=== PATIENT | male | born 1970 | race Caucasian/White ===

== ENCOUNTER 2021-04-08 09:09 | Day surgery (SDC) | payer OTHER ==
[2021-04-08] MEDS ORDERED: Lactated Ringers 1,000 ML IV SCH (09:30)
[2021-04-08] MEDS ORDERED: Lactated Ringers 1,000 ML IV ONE (09:49)
--- NOTE | 2021-04-08 11:26 | HP ---
PROCEDURE DATE: 04/08/2021 HISTORY OF PRESENT ILLNESS: The patient is a 50 y/o with no prior colonoscopy in the past. No blood in the stool. No change in bowel movements. No pain. In need of screening colonoscopy. PAST MEDICAL HISTORY: Hypothyroidism, hypertension. CURRENT MEDICATIONS: Suboxone, Synthroid, lisinopril, meloxicam, tizanidine. ALLERGIES: NO KNOWN DRUG ALLERGIES. PAST SURGICAL HISTORY: Denies prior surgeries. FAMILY HISTORY: Negative for colon cancer. SOCIAL HISTORY: 1 pack per day smoker. Denies alcohol abuse. REVIEW OF SYSTEMS: 14 systems reviewed. No chest pain or palpitations. Other systems negative or noncontributory other than above and per preadmission questionnaire. PHYSICAL EXAMINATION: GENERAL: No acute distress. HEENT: Sclerae nonicteric. NECK: No JVD. CHEST: Equal excursion. Nonlabored breathing. CVS: Regular rate and rhythm. ABDOMEN: Soft. No peritoneal signs. EXTREMITIES: No significant edema. NEURO: Alert, moving extremities symmetrically. PSYCH: Appropriate mood and affect. RECTAL: Deferred until time of endoscopy. IMPRESSION: NEED FOR SCREENING COLONOSCOPY. FEEL THE PATIENT IS A CANDIDATE. Shown the risk sheet. Explained the procedure in detail including risks of bleeding; infection; small risk of bowel injury or perforation possibly requiring open procedure; risk of missed or nondiagnosis or incomplete exam possibly requiring barium enema or other studies or procedures; general risk of anesthesia or sedation, but not limited to. Consent obtained. Will proceed with outpatient colonoscopy.
[2021-04-08] MEDS ORDERED: Versed 2 MG/2 ML Injection ONE (11:42)
[2021-04-08] MEDS ORDERED: DIPRIVAN 200 MG/20 ML IV ONE (11:42)
[2021-04-08 12:49] VITALS: BP 130/93; PULSE 54; O2SAT 98
--- NOTE | 2021-04-09 12:15 | OP ---
SURGERY DATE: 04/08/2021 SURGERY TIME: 1145 PREOPERATIVE DIAGNOSIS: 1. NEED FOR SCREENING COLONOSCOPY. POSTOPERATIVE DIAGNOSIS: 1. ASA CLASS II. 2. WITHDRAWAL TIME 8 MINUTES. 3. PREP FAIR. LIMITED WITH MODERATE AMOUNT OF LIQUIDY STOOL RIGHT COLON. PROCEDURE: 1. Colonoscopy to cecum. SURGEON: Dr. John Reed. ANESTHESIA: MAC. ESTIMATED BLOOD LOSS: Minimal. INDICATIONS: As noted above. Risks and benefits explained in detail, but not limited to. Consent obtained. DESCRIPTION OF PROCEDURE AND FINDINGS: The patient as taken to the OR. MAC anesthesia induced after official time-out for planned procedure. Video colonoscope inserted and passed up through the slightly tortuous sigmoid, descending, transverse, and ascending colon around to the cecum. The appendiceal orifice and valve were well visualized and photo documented. Prep overall was fair, but on the limited side on the right colon with a large amount of liquidy and some foamy stool just slightly limiting the exam for small lesions. This was suction irrigated as clear as possible and even some Mylicon was used. There were no signs of any large polyps, masses, or obstructing lesions. On withdrawal of the scope, there were no signs of any large diverticula. Overall, fairly normal exam. However, given the slight prep limitations of the right colon, would recommend follow-up colonoscopy in 5 years. Otherwise, there were no family or friends here to discuss any findings with. If the patient has questions, can see him in the office next week. Otherwise, will put him in for a remainder for 5 years.
== END 2021-04-08 12:55 | disposition home or self-care (01) ==
LOC: SDC 09:09
PROVIDERS: ATTEND Surgery
DX: Z12.11 Encounter for screening for malignant neoplasm of colon (principal); Z79.899 Other long term (current) drug therapy
CPT/HCPCS: J2250; J2704

== ENCOUNTER 2021-07-03 16:13 | Emergency (ER) | payer OTHER ==
[2021-07-03] MEDS ORDERED: Sodium Chloride 0.9% 1000 ML 1,000 ML ONE (17:17)
[2021-07-03] MEDS ORDERED: TYLENOL 325 MG ONE (17:17)
[2021-07-03] MEDS: Sodium Chloride 0.9% 1000 ML 1,000 ML IV STA (17:18)
[2021-07-03] MEDS: TYLENOL 325 MG PO STA (17:18)
[2021-07-03 17:25] LABS: BASOPHIL % 0.1 % (0.0-0.4); Basophil (Absolute #) 0.01 (0-0.4); Eosinophil % 0.4 % (0.00-5.0); Eosinophil (Absolute #) 0.05 (0-0.5); Hematocrit 38.6 % (42-50); Hemoglobin 12.5 gm/dl (12.5-18.0); Lymphocyte (Absolute #) 2.49 (1.0-4.6); Lymphocytes % 20.7 % (24.0-44.0); Mean Cell Volume 94.6 fl (78-100); Mean Corpuscular Hemoglobin 30.6 pg (26-32); Mean Corpuscular Hgb Concent. 32.4 g/dl (32-36); Mean Platelet Volume 10.1 fl (7.5-11.0); Monocyte (Absolute #) 1.09 (0.0-1.3); Monocytes % 9.1 % (0.0-12.0); Neutrophil % 69.7 % (36.0-66.0); Platelet Count 281 K/mm3 (150-450); Red Blood Count 4.08 M/mm3 (4.1-5.6); Red Cell Distribution Width 11.7 % (11.5-14.0)
[2021-07-03 17:48] LABS: ALBUMIN 4.4 g/dL (3.5-5.0); ALKALINE PHOSPHATASE 74 U/L (38-126); ANION GAP 12.5 MEQ/L (5-15); BLOOD UREA NITROGEN 10 mg/dL (9-20); CHLORIDE 98 mmol/L (98-107); Calcium 9.6 mg/dL (8.4-10.2); Carbon Dioxide 28 mmol/L (22-30); Creatinine 1 0.71 mg/dL (0.66-1.25); EST GLOMERULAR FILTRATION RATE > 60.0 ML/MIN; Glucose 93 mg/dL (74-106); Potassium 4.3 mmol/L (3.5-5.1); SGOT/AST 38 U/L (17-59); SGPT/ALT 46 U/L (0-50); SODIUM 134 mmol/L (137-145); Total Protein 7.5 g/dL (6.3-8.2)
--- NOTE | 2021-07-03 19:44 | ERPHSYRPT ---
- History of Present Illness Time Seen by Provider: 07/03/21 16:25 Source: patient Exam Limitations: no limitations Patient Subjective Stated Complaint: Pt thinks that he is dehydrated due to covid and has body pain Triage Nursing Assessment: Pt brought to the ER by his , hypertensive, rates pain 10/10 due to body fatigue and pain, pt thinks that he is dehydrated, pulses normal, very talkative, no issues with breathing, skin n/w/d Physician History: Patient is a 50-year-old male presents to emergency department for IV fluids. Patient states he is dehydrated. Patient is known Covid positive. Patient states he has loss of smell and taste. He complains of generalized body aches. He is experiencing decreased p.o. no change in urine output. Patient afebrile. Patient denies shortness of breath. No dizziness or lightheadedness. No nausea or vomiting. Symptoms are mild to moderate in intensity. No specific worsening improving factors. Patient voices no other complaints or concerns at this time. Timing/Duration: today Severity: moderate Modifying Factors: Improves With: nothing Associated Symptoms: denies symptoms Allergies/Adverse Reactions: No Known Drug Allergies Allergy (Verified 07/03/21 16:27) Home Medications: Buprenorphine HCl/Naloxone HCl [Suboxone 8 mg-2 mg Tablet Sl] 8 mg PO DAILY 04/02/21 [History] Levothyroxine Sodium 25 Mcg [Synthroid 25 Mcg] 37 mcg PO DAILY 04/02/21 [History] Lisinopril 10 mg [Zestril 10 MG] 10 mg PO DAILY 04/02/21 [History] Meloxicam [Mobic] 15 mg PO DAILY 04/02/21 [History] Tizanidine HCl 4 mg [Zanaflex 4 MG] 4 mg PO HS 04/02/21 [History] Travel Risk - International Travel Have you traveled outside of the country in past 3 weeks: No - Coronavirus Screening Are you exhibiting any of the following symptoms?: Yes Symptoms: Cough: New Onset, Loss of Taste or Smell, Headaches/Body Aches/Fatigue Close contact with a COVID-19 positive Pt in past 14-21 Days: No - Vaccine Status Have you recieved a Covid-19 vaccination: Yes [employer] - Review of Systems Constitutional: No Symptoms, No Fever, No Chills Eyes: No Symptoms Ears, Nose, & Throat: No Symptoms Respiratory: No Symptoms, No Cough, No Dyspnea Cardiac: No Symptoms, No Chest Pain, No Edema, No Syncope Abdominal/Gastrointestinal: No Symptoms, No Abdominal Pain, No Nausea, No Vomiting, No Diarrhea Genitourinary Symptoms: No Symptoms, No Dysuria Musculoskeletal: No Symptoms, No Back Pain, No Neck Pain Skin: No Symptoms, No Rash Neurological: No Symptoms, No Dizziness, No Focal Weakness, No Sensory Changes Psychological: No Symptoms Endocrine: No Symptoms Hematologic/Lymphatic: No Symptoms Immunological/Allergic: No Symptoms All Other Systems: Reviewed and Negative - Past Medical History Pertinent Past Medical History: Yes Neurological History: No Pertinent History ENT History: No Pertinent History Cardiac History: Hypertension Respiratory History: No Pertinent History Endocrine Medical History: No Pertinent History Musculoskeletal History: Osteoarthritis GI Medical History: No Pertinent History History: No Pertinent History Psycho-Social History: No Pertinent History Male Reproductive Disorders: No Pertinent History Other Medical History: Pt notes 7-8 years ago he had back pain, had an MRI. - Past Surgical History Past Surgical History: No - Social History Smoking Status: Current every day smoker How long have you smoked: 30 years Exposure to second hand smoke: No Drug Use: marijuana - Nursing Vital Signs Nursing Vital Signs: Initial Vital Signs Temperature 98.1 F 07/03/21 16:20 Pulse Rate 95 H 07/03/21 16:20 Respiratory Rate 21 07/03/21 16:20 Blood Pressure 147/107 07/03/21 16:20 O2 Sat by Pulse Oximetry 99 07/03/21 16:20 Pain Scale Pain Intensity 10 - Physical Exam General Appearance: no apparent distress, alert Eye Exam: PERRL/EOMI, eyes nml inspection Ears, Nose, Throat Exam: normal ENT inspection, TMs normal, pharynx normal, moist mucous membranes Neck Exam: normal inspection, non-tender, supple, full range of motion Respiratory Exam: normal breath sounds, lungs clear, airway intact, No respiratory distress Cardiovascular Exam: regular rate/rhythm, normal heart sounds, normal peripheral pulses Gastrointestinal/Abdomen Exam: soft, normal bowel sounds, No tenderness, No mass Back Exam: normal inspection, normal range of motion, No CVA tenderness, No vertebral tenderness Extremity Exam: normal inspection, normal range of motion, pelvis stable Neurologic Exam: alert, oriented x 3, cooperative, normal mood/affect, nml cerebellar function, nml station & gait, sensation nml, No motor deficits Skin Exam: normal color, warm, dry, No rash Lymphatic Exam: No adenopathy SpO2 Interpretation: normal SpO2: 98 O2 Delivery: Room Air - Course Nursing assessment & vital signs reviewed: Yes Ordered Tests: Active Orders 24 hr Category Date Time Status Field Sales Executive STAT Care 07/03/21 16:55 Active IV Insertion STAT Care 07/03/21 16:55 Active Pulse Oximetry (ED) STAT Care 07/03/21 16:55 Active BLOOD CULTURE Stat Lab 07/03/21 17:13 Received CBC W DIFF Stat Lab 07/03/21 16:55 Completed CMP Stat Lab 07/03/21 17:07 Completed Lactic Acid Stat Lab 07/03/21 16:55 Completed UA W/RFX UR CULTURE Stat Lab 07/03/21 19:16 Ordered Medication Summary Discontinued Medications Generic Name Dose Route Start Last Admin Trade Name Freq PRN Reason Stop Dose Admin Acetaminophen 975 mg 07/03/21 16:55 07/03/21 17:18 Acetaminophen 325 Mg Tablet PO 07/03/21 16:56 975 mg STAT STA Administration Acetaminophen Confirm 07/03/21 17:17 Acetaminophen 325 Mg Tablet Administered 07/03/21 17:18 Dose 975 mg .ROUTE .STK-MED ONE Sodium Chloride 1,000 mls @ 999 mls/hr 07/03/21 16:55 07/03/21 18:55 Sodium Chloride 0.9% 1000 Ml IV 07/03/21 17:55 Infused .Q1H1M STA Infusion Sodium Chloride Confirm 07/03/21 17:17 Sodium Chloride 0.9% 1000 Ml Administered 07/03/21 17:18 Dose 1,000 mls @ ud .ROUTE .STK-MED ONE Lab/Rad Data: Laboratory Result Diagrams 07/03/21 16:55 07/03/21 17:07 Laboratory Results 07/03/21 07/03/21 07/03/21 Range/Units 17:07 16:55 16:55 WBC 12.0 H (4.0-10.5) K/mm3 RBC 4.08 L (4.1-5.6) M/mm3 Hgb 12.5 (12.5-18.0) gm/dl Hct 38.6 L (42-50) % MCV 94.6 (78-100) fl MCH 30.6 (26-32) pg MCHC 32.4 (32-36) g/dl RDW 11.7 (11.5-14.0) % Plt Count 281 (150-450) K/mm3 MPV 10.1 (7.5-11.0) fl Gran % 69.7 H (36.0-66.0) % Eos # (Auto) 0.05 (0-0.5) Absolute Lymphs (auto) 2.49 (1.0-4.6) Absolute Monos (auto) 1.09 (0.0-1.3) Lymphocytes % 20.7 L (24.0-44.0) % Monocytes % 9.1 (0.0-12.0) % Eosinophils % 0.4 (0.00-5.0) % Basophils % 0.1 (0.0-0.4) % Absolute Granulocytes 8.40 H (1.4-6.9) Basophils # 0.01 (0-0.4) Sodium 134 L (137-145) mmol/L Potassium 4.3 (3.5-5.1) mmol/L Chloride 98 (98-107) mmol/L Carbon Dioxide 28 (22-30) mmol/L Anion Gap 12.5 (5-15) MEQ/L BUN 10 (9-20) mg/dL Creatinine 0.71 (0.66-1.25) mg/dL Estimated GFR > 60.0 ML/MIN Glucose 93 (74-106) mg/dL Lactic Acid 0.7 (0.4-2.0) Calcium 9.6 (8.4-10.2) mg/dL Total Bilirubin 0.60 (0.2-1.3) mg/dL AST 38 (17-59) U/L ALT 46 (0-50) U/L Alkaline Phosphatase 74 (38-126) U/L Serum Total Protein 7.5 (6.3-8.2) g/dL Albumin 4.4 (3.5-5.0) g/dL - Progress Progress: improved Progress Note: Patient reassessed. He feels much better. Patient now requesting discharge. Work-up reveals a mild leukocytosis of 12. Mildly hyponatremic. Patient received IV fluids and Tylenol. No indication for further work-up at this time. Vital stable. Patient afebrile. Lactic acid within normal limits. will discharge at this time. Patient agrees to follow-up with his primary care doctor within 48 hours for evaluation. He voices no other complaints or concerns at this time. Patient has no hematuria or dysuria. No frequency or urgency. Portions of this note were created with voice recognition technology. There may be grammatical, spelling, punctuation or sound alike errors 07/03/21 19:43 07/03/21 19:46 Counseled pt/family regarding: lab results, diagnosis, need for follow-up - Departure Departure Disposition: Home Clinical Impression: COVID-19, Viral syndrome, Dehydration Condition: Stable Critical Care Time: No Referrals: LORENZA DUFFY [Primary Care Provider] - Follow up/PCP as directed Additional Instructions: Discharge/Care Plan MARCELINO CARBAJAL was seen on 07/03/21 in the Emergency Room. The patient was counseled regarding Diagnosis,Lab results, Imaging studies, need for follow up and when to return to the Emergency Room. Prescriptions given: Discharge Note I have spoken with the patient and/or caregivers. I have explained the patient's condition, diagnosis and treatment plan based on the information available to me at this time. I have answered the patient's and/or caregiver's questions and addressed any concerns. The patient and/or caregivers have as good understanding of the patient's diagnosis, condition and treatment plan as can be expected at this point. The vital signs have been stable. The patient's condition is stable and appropriate for discharge from the emergency department. The patient will pursue further outpatient evaluation with the primary care physician or other designated or consulting physician as outlined in the discharge instructions. The patient and/or caregivers are agreeable to this plan of care and follow-up instructions have been explained in detail. The patient and/or caregivers have received these instruction. The patient/and or caregivers are aware that any significant change in condition or worsening of symptoms should prompt an immediate return to this or the closest emergency department or call 911.
[2021-07-03 19:49] VITALS: BP 124/82; PULSE 73; O2SAT 96
[2021-07-03 20:31] LABS: Appearance CLEAR (CLEAR); Bilirubin NEGATIVE (NEGATIVE); Blood NEGATIVE Ery/ul (0-5); Glucose NEGATIVE (NEGATIVE); Ketones NEGATIVE (NEGATIVE); Leukocyte Esterase NEGATIVE (NEGATIVE); Nitrite NEGATIVE (NEGATIVE); Protein,Urine Dip NEGATIVE (Negative); Specific Gravity 1.005 (1.005-1.025); Urobilinogen NEGATIVE mg/dL (0-1)
== END 2021-07-03 19:54 | disposition home or self-care (01) ==
LOC: ED 16:13
DX: U07.1 COVID-19 (principal); E86.0 Dehydration; R43.8 Other disturbances of smell and taste; M79.10 Myalgia, unspecified site; I10 Essential (primary) hypertension; Z79.891 Long term (current) use of opiate analgesic; Z79.899 Other long term (current) drug therapy; Z72.0 Tobacco use
CPT/HCPCS: 36000; 36415; 80053; 81001; 83605; 85025; 87040; 93041; 94760; 96360; 99284; A9270-GY